=== PATIENT | female | born 1935 | race Caucasian/White ===

== ENCOUNTER 2016-09-29 16:38 | Observation (INO) ==
[2016-09-29] MEDS ORDERED: Ondansetron 4 MG/2 ML VIAL IVP PRN (20:15)
[2016-09-29] MEDS ORDERED: Acetaminophen 325 MG TABLET PO PRN (20:15)
[2016-09-29] MEDS ORDERED: Naloxone 0.4 MG/ML INJ IVP PRN (20:15)
--- NOTE | 2016-09-29 20:34 | Internal Med History&Physical ---
Date of Encounter: 09/29/16 Time of Encounter: 19:30 Assessment and Plan (1) Syncope, near Current visit: Yes Status: Acute 1 patient had a near syncopal episode today after having bowel movement she began to feel lightheaded and nauseated and diaphoretic weak. Vital arrival to the EMS her blood pressure systolic was in the 60s questionable Mobitz 2 during transport. Upon arrival to the ER appears patient was in Mobitz 1 she received fluid blood pressure improved. Patient has had episodes like this in the past within the past year and a half. We will continue with cardiac monitoring 2 we will obtain orthostatic vitals 3 obtain cardiac echo 4 we will consult cardiology 5 we will hold antihypertensives for now 6 we will monitor troponin (2) Hypertension Current visit: No Status: Chronic 1 present hypotensive we will hold antihypertensive for now Qualifiers: Hypertension type: essential hypertension Qualified Code(s): I10 - Essential (primary) hypertension (3) Tobacco abuse Current visit: Yes Status: Acute Encouraged patient to stop smoking-nicotine patch (4) DVT prophylaxis Current visit: Yes Status: Acute LEO gonsales Internal Medicine - H&P: HPI Chief complaint: syncope Admitted From: Emergency Dept Plans for Post Hospital Care: Home History of present illness: Ms. Man is a 81 year old female past medical history hypertension current smoker hyperlipidemia GERD. 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 Sit around 2 PM she began to feel associated with the bowel movement. She had a bowel movement without difficulty went to the couch to lie down and she began to experience abdominal cramping and pain she went to the bathroom for the second time this time she had a loose stool began to experience nausea was diaphoretic on the way back to the couch she felt lightheaded she did lie down . She experienced a third episode of abdominal cramping and distention with bathroom again feeling diaphoretic nauseated and lightheaded to the point it she was unable to stand up her granddaughter called EMS. According to [place] [facility] records during transport patient's systolic was in the 60s. Upon arrival to [place] [facility] her systolic was in the 80s she was lightheaded. She was placed in Trendelenburg and was given IV fluids. Pressure did improve to 100s systolic. Pulse rate upon arrival was 66 initial EKG showed second-degree heart Mobitz type I. According to the ER records there was concern about Mobitz2 on second EKG lab work was unremarkable troponin was 0. Her vital signs stabilized she was transferred to [facility] for further workup and evaluation. Presently patient denies any chest pain or shortness of breath. The respiratory distress. She has sinus rhythm on monitor. Lung sounds are clear heart sounds are regular S1- S2 no rubs clicks gallops or murmurs noted. Abdomen soft nontender no edema to lower extremities. According to patient she has had 3 similar episodes over the past year and a half she was supposed to have a Holter monitor but she declined. She did not lose any consciousness during these episodes. Presently she denies any recent visual changes headaches palpitations chest pains or hematochezia melena or hematemesis. She does admit to having episodes of hypotension and has cut her antihypertensive in half. Presently she is hemodynamically stable I reviewed this case with Dr Foreman who agrees with plan. Past Med Surg Social Fam HX - Past Medical History Medical history: hyperlipidemia, hypertension Psychiatric history: no psych history - Past Surgical History Surgical History: appendectomy, cholecystectomy, hysterectomy - Social History Smoking Status: Current every day smoker Smokeless Tobacco Status: No Alcohol use: none Drug use: none - Family History Mother Age at : 69 Cause of : heart attack Hx Family Cardiac Disorders: Yes Internal Medicine - H&P: Meds Aspirin 81 mg PO DAILY 06/06/16 [History] Calcium Carbonate/Vitamin D3 [Calcium 500 + Vit D Caplet] 1 each PO DAILY [History] Omeprazole [Omeprazole] 1 cap PO DAILY 06/06/16 [History] Potassium Chloride [Klor-Con 10] 20 meq PO DAILY 06/06/16 [History] Lisinopril/Hydrochlorothiazide [Zestoretic 20-25 mg Tablet] 1 each PO DAILY [History] Allergies Penicillins [PCN] Allergy (Verified 06/06/16 14:56) Hives Sulfa (Sulfonamide Antibiotics) Allergy (Verified 06/06/16 14:56) Hives All Systems PM: A 10-system review of systems was performed and is negative for pertinent findings except as documented above in the HPI. - Constitutional Constitutional: no chills, no fever(s), no night sweats - EENT Eyes: no change in vision, no discharge, no pain, no photophobia Nose, mouth and throat: no dysphagia, no nasal discharge, no neck pain, no sore throat - Cardiovascular Cardiovascular ROS IM: lightheadedness, no chest pain, no diaphoresis, no dyspnea, no palpitations, no syncope - Respiratory Respiratory: no cough, no dyspnea, no wheezing, no excessive phlegm production - Gastrointestinal Gastrointestinal: abdominal pain, loose stools - Genitourinary Genitourinary: no change in urinary stream, no dysuria, no flank pain, no hematuria - Musculoskeletal Musculoskeletal ROS IM: back pain, no numbness, no tingling - Neurological Neurological ROS: no confusion, no convulsions, no focal weakness, no numbness, no tingling, no tremor(s) - Constitutional Vitals: Temp Pulse Resp BP Pulse Ox 98.2 F 78 16 132/69 95 09/29/16 18:01 09/29/16 18:01 09/29/16 18:01 09/29/16 18:01 09/29/16 18:01 General appearance: Present: A&O X 3 - Head Head exam: Present: atraumatic, normocephalic - Eye Eye exam: Present: PERRL, conjuntiva pink, sclera anicteric Pupils: Present: PERRL - Neck Neck exam general surgery: Present: supple, trachea midline. Absent: lymphadenopathy - Respiratory Respiratory exam: Present: CTAB. Absent: accessory muscle use, rales, rhonchi, wheezes - Cardiovascular Cardiovascular exam: Present: RRR, +S1, +S2. Absent: diastolic murmur, gallop, rubs, systolic murmur - GI/Abdominal GI/Abdominal exam: Present: normal bowel sounds, soft, no peritoneal signs. Absent: distended, tenderness - Extremities Exam Extremities exam: Present: warm, radial pulses palpable and symetrical. Absent : calf tenderness, cyanotic, pedal edema - Neurological Exam Neurological exam: Present: CN II-XII intact, oriented X3, no focal deficits. Absent: pronater drift, facial droop, speech deficit - Skin Skin exam: Present: dry, intact Internal Med - H&P Results - EKG Data EKG comments: 09/29/16 21:15 I reviewed the EKG with Dr. Foreman initial EKG appears to be rate of 67 Mobitz type I Second EKG rate of 84 this appears to be a first-degree block the possible Mobitz 1
[2016-09-29] MEDS: Nicotine 14 MG PATCH.TD24 TD SCH (22:11)
[2016-09-30 04:41] LABS: Basophils # 0.1 K/mcL (0.0-0.2); Basophils % 0.7 %; Eosinophils # 0.2 K/mcL (0.0-0.6); Eosinophils % 1.9 %; Hematocrit 37.8 % (35.3-44.9); Hemoglobin 12.9 g/dL (11.5-15.4); Immature Granulocytes % 0.1 % (0-4); Lymphocytes % 35.6 %; Mean Corpuscular HGB Conc 34.1 g/dL (31.6-35.5); Mean Corpuscular Hemoglobin 31.4 pg (28.0-33.3); Mean Platelet Volume 9.2 fL (9.4-12.4); Monocytes # 0.7 K/mcL (0.0-1.3); Monocytes % 8.7 %; Neutrophils # 4.5 K/mcL (1.6-8.9); Platelet Count 288 K/mcL (140-400); Red Blood Count 4.11 M/mcL (3.82-4.97); Red Cell Distribution Width 14.8 % (11.5-14.5)
[2016-09-30 05:06] LABS: BUN/Creatinine Ratio 11 (6-26); Blood Urea Nitrogen 10 mg/dL (7-20); Calcium 9.6 mg/dL (8.6-10.8); Carbon Dioxide 29 mEq/L (19-29); Chloride 103 mEq/L (98-109); Chol/HDL Ratio 3.1 (0-4.9); Cholesterol 193 mg/dL (< 200); Glucose 86 mg/dL (70-99); HDL Cholesterol 62 mg/dL (40-59); LDL Cholesterol,Calculated 105 mg/dL (0-99); Magnesium 1.9 mg/dL (1.6-2.6); Osmolality,Calculated 282 (280-300); Potassium 3.6 mEq/L (3.5-4.5); Sodium 137 mEq/L (136-145); Triglycerides 129 mg/dL (< 150); eGFR For African Americans > 60 (> 60); eGFR For Non-African Americans 58 (> 60)
[2016-09-30] MEDS: Nicotine 14 MG PATCH.TD24 TD SCH (07:54)
[2016-09-30] MEDS ORDERED: Aspirin 81 MG TAB.CHEW PO SCH (09:00)
--- NOTE | 2016-09-30 10:03 | Cardiology Consult Note ---
Date of Encounter: 09/30/16 Time of Encounter: 08:20 Assessment and Plan (1) Mobitz (type) I (Wenckebach's) atrioventricular block Current Visit: Yes Status: Acute Presents with dizziness with position change after going to bathroom. Orthostatic vitals negative. EKG reviewed with Dr. Hubbard. Evidence of Mobitz type I (wenckebach). She denies recurrent symptoms. No recurrent Mobitz type I seen in telemetry review. Avoid AV dayami blockers. Check TTE. TTE 12/2015: EF 60%. No SWMA. Trivial MR. Mild TR. CUS 09/02/15: Minimal plaque. TSH normal. Troponin negative x 3. Out-pt f/u will be made with electrophysiology at [facility]. (2) Hypertension Current Visit: No Status: Chronic Restart lisinopril. Qualifiers: Hypertension type: essential hypertension Qualified Code(s): I10 - Essential (primary) hypertension Discussion w patient/family: The assessment and plan as outlined above was discussed with the patient and/or family members who expressed understanding and agreement. All questions were answered. Thank you for involving us in the care of your patient. Please call with any questions. History of Present Illness Consult date: 09/30/16 Requesting physician: Houston Borden Consult reason: pre-syncope Chief complaint: Dizziness History of present illness: Ms. Man is a 81 year old female with a history of hypertension who presented when she developed dizziness ambulating to the bathroom. She reports going to the bathroom and straining to have a bowel movement. She complained of lower abdominal cramps and some sweating. She did develop diarrhea. She was up and down to the bathroom frequently. When getting up to the bathroom she developed dizziness and felt like she was going to pass out. She denies syncopal event. She denies falling. Cardiology was consult a due to EKG showing Mobitz type I. she denies chest pain or shortness of breath. Denies orthopnea, PND, or edema. She denies palpitations. Past Med Surg Social Fam HX - Past Medical History Medical history: hyperlipidemia, hypertension Psychiatric history: no psych history - Past Surgical History Surgical History: appendectomy, cholecystectomy, hysterectomy - Social History Smoking Status: Current every day smoker Smokeless Tobacco Status: No Alcohol use: none Drug use: none - Family History Mother Age at : 69 Cause of : heart attack Hx Family Cardiac Disorders: Yes Medications and Allergies Aspirin 81 mg PO DAILY 06/06/16 [History] Calcium Carbonate/Vitamin D3 [Calcium 500 + Vit D Caplet] 1 each PO DAILY [History] Omeprazole [Omeprazole] 1 cap PO DAILY 06/06/16 [History] Potassium Chloride [Klor-Con 10] 20 meq PO DAILY 06/06/16 [History] Lisinopril/Hydrochlorothiazide [Zestoretic 20-25 mg Tablet] 1 each PO DAILY [History] Allergies Penicillins [PCN] Allergy (Verified 06/06/16 14:56) Hives Sulfa (Sulfonamide Antibiotics) Allergy (Verified 06/06/16 14:56) Hives All Systems Review: A 10-system review of systems was performed and is negative for pertinent findings except as documented above in the HPI. Physical Examination Vital Signs, Last 4 Hours Temp Pulse Resp BP Pulse Ox 09/30/16 07:00 97.9 F 84 18 162/76 98 General: Conversant, No Apparent Distress HEENT: Atraumatic, Normocephaly, Mucus Membranes Moist Neck: No JVD, Normal carotid pulses Cardiac: Reg Rate and Rhythm, Normal S1 and S2, No Murmur Lungs: Normal Breath Sounds, No Wheeze, Rales, Rhonchi Neuro: Alert and responsive, No focal deficits noted Abdomen: Soft, Non-Tender Skin: No rashes noted on visualized skin Musculoskeletal: No Chest Wall Tenderness Extremities: No Clubbing, No Cyanosis, No Edema, Normal Pulses Results 09/30/16 03:48 09/30/16 03:48 Lab Results 09/29/16 09/30/16 09/30/16 20:44 03:48 03:48 WBC 8.5 Hgb 12.9 Hct 37.8 Plt Count 288 Sodium Potassium Chloride Carbon Dioxide BUN Creatinine Glucose Calcium Magnesium Troponin I 0.01 0.02 09/30/16 09/30/16 03:48 08:50 WBC Hgb Hct Plt Count Sodium 137 Potassium 3.6 Chloride 103 Carbon Dioxide 29 BUN 10 Creatinine 0.93 Glucose 86 Calcium 9.6 Magnesium 1.9 Troponin I 0.01 - Imaging and Cardiology Echo: report reviewed - EKG Interpretation EKG results cardiology: personally reviewed (Sinus rhythm with first degree block and Mobitz type I pattern seen. No acute ST changes) Consult Discharge Plan - Plan Referrals: Charlie Vazquez MD [Primary Care Provider] -
[2016-09-30] MEDS ORDERED: Lisinopril 20 MG TABLET PO SCH (10:15)
[2016-09-30 11:36] VITALS: BP 141/71
--- NOTE | 2016-09-30 12:39 | Discharge Summary ---
Date of Encounter: 09/30/16 Time of Encounter: 09:20 - Discharge Diagnosis (1) Mobitz (type) I (Wenckebach's) atrioventricular block Priority: Primary Status: Chronic (2) Syncope, near Priority: Secondary Status: Resolved (3) Hypertension Priority: Secondary Status: Chronic Qualifiers: Hypertension type: essential hypertension Qualified Code(s): I10 - Essential (primary) hypertension - Discharge Medications Home Medications: Aspirin 81 mg PO DAILY 06/06/16 [History] Calcium Carbonate/Vitamin D3 [Calcium 500 + Vit D Caplet] 1 each PO DAILY [History] Omeprazole [Omeprazole] 1 cap PO DAILY 06/06/16 [History] Potassium Chloride [Klor-Con 10] 20 meq PO DAILY 06/06/16 [History] Lisinopril/Hydrochlorothiazide [Zestoretic 20-25 mg Tablet] 0.5 each PO DAILY [History] Allergies/Adverse Reactions: Allergies Penicillins [PCN] Allergy (Verified 06/06/16 14:56) Hives Sulfa (Sulfonamide Antibiotics) Allergy (Verified 06/06/16 14:56) Hives Procedures/tests Complete & Pending: Procedures Performed prior 72 hours Category Date Time Status ECG 12 lead ECG [ECG] AM 0600 Y 09/30/16 06:00 Ordered EV echocardiogram Routine Y 09/30/16 20:31 Completed Date of admission: 09/29/16 17:48 Primary care physician: Charlie Vazquez MD Consults: 09/29/16 20:29 Consult to Cardiology [CONS] Routine Comment: Consulting Provider: [facility] [place] Reason for Consult: syncope Time Notified: 20:30 Call Completed: No Discharging clinician: Erik Valero Anticipated date of discharge: 09/30/16 - Patient Status Disposition: Home, Self-Care Condition: Good Functional capacity at discharge: independent ambulation Overall status at discharge: patient is back to baseline - Discharge Instructions Follow Up With: Charlie Vazquez MD [Primary Care Provider] - - Diet and Activity Activity: increase activity as tolerated Diet: low salt diet Hospital course: Ms. Man is a 81 year old female with a history of hypertension who had abdominal cramps, diarrhea and felt lightheaded. She was hypotensive with a systolic blood pressure in the 60s to 80s. She was given intravenous fluids and her blood pressure improved. She was transferred from [facility] emergency room to [facility] due to suspicion of Mobitz type II AV block on the EKG. The patient was placed under observation overnight and cardiology was consulted. An echocardiogram has been performed. Cardiology has reviewed the EKG and the patient has Mobitz type I AV block that is Wenckebach phenomenon. The patient does not require any pacemaker emergently. Cardiology has reviewed the echo and the echo shows preserved ejection fraction without any diastolic dysfunction. Cardiology has cleared the patient for discharge and stated that the patient would require outpatient follow-up with an cake maker. The patient has not had any further episodes of lightheadedness or syncope since admission. As the patient is currently doing well and has been cleared by cardiology, she has been deemed stable to be discharged home today. - Time Spent with Patient Total time spent providing and/or coordinating discharge services: - Constitutional Vitals: Temp Pulse Resp BP Pulse Ox 97.9 F 84 18 141/71 98 09/30/16 07:00 09/30/16 07:00 09/30/16 07:00 09/30/16 11:35 09/30/16 07:00 General appearance: Present: A&O X 3 Exam: Gen.: Sitting in the bed. No acute distress. Chest: Clear to auscultation bilaterally. No adventitious sounds present. CVS: First and second heart sounds present. No murmurs, rubs or gallops. - VTE Documentation of Mechanical Device: Graduated compression elastic hosiery
== END 2016-09-30 14:20 | disposition home or self-care (01) ==
LOC: 2NENU
PROVIDERS: ADMIT Internal Medicine; ATTEND Internal Medicine Sleep Medicine